=== PATIENT | female | born 1980 | race Caucasian/White ===

== ENCOUNTER → 2018-03-02 | Outpatient (CLI) | payer OTHER ==
[~2018-03-02] MED LIST: ALBU18HF INH; BUDE10.2 INH; LORA-974 PO; MONT10TA9 PO
== END | disposition home or self-care (01) ==
LOC: CARD 14:27
PROVIDERS: ATTEND Allergy & Immunology
DX: J45.40 Moderate persistent asthma, uncomplicated (principal)
CPT/HCPCS: 94060; 94726; 94729

== ENCOUNTER 2020-05-01 18:45 | Emergency (ER) | payer OTHER ==
[~2020-05-01] VITALS: Ht 167.6 cm; Wt 65.0 kg
[~2020-05-01 18:45] MED LIST changes: -MONT10TA9 PO; +MONT10TA96 PO
[2020-05-01 18:49] VITALS: BP 140/92
--- NOTE | 2020-05-01 19:21 | NUR ---
pt to room from lobby
[2020-05-01] MEDS ORDERED: HYDROcodone/APAP 5/325 TABLET ONE (19:58)
[2020-05-01] MEDS ORDERED: HYDROcodone/APAP 5/325 TABLET PO ONE (20:00)
== END 2020-05-01 20:44 | disposition home or self-care (01) ==
LOC: ED 20:00
DX: S93.491A Sprain of other ligament of right ankle, initial encounter (principal); S90.31XA Contusion of right foot, initial encounter; J45.909 Unspecified asthma, uncomplicated; K21.9 Gastro-esophageal reflux disease without esophagitis; Z90.49 Acquired absence of other specified parts of digestive tract; X58.XXXA Exposure to other specified factors, initial encounter; Y93.89 Activity, other specified; Y92.009 Unspecified place in unspecified non-institutional (private) residence as the place of occurrence of the external cause; Y99.8 Other external cause status
CPT/HCPCS: 99284